=== PATIENT | male | born 1965 | race Caucasian/White ===

== ENCOUNTER 2017-07-16 10:36 | Emergency (ER) | payer OTHER ==
[2017-07-16 11:49] VITALS: BP 133/83
--- NOTE | 2017-07-16 12:04 | UC ---
Respiratory Complaint HPI - HPI Summary HPI Summary: 52 year old male with no significant pmhx here with cough, congestion and runny nose for over 2 weeks. Reports symptoms not alleviated even on OTC meds. CP only when coughing. Reports productive cough and patient is active smoker. - History of Current Complaint Chief Complaint: UCRespiratory Stated Complaint: UPPER RESPIRATORY COMPLAINT Time Seen by Provider: 07/16/17 12:02 Hx Obtained From: Patient Onset/Duration: Gradual Onset Severity Initially: Mild Pain Intensity: 8 Character: Sputum Description: Aggravating Factors: Nothing Alleviating Factors: Nothing Associated Signs And Symptoms: Positive: Nasal Congestion, Sinus Discomfort - Allergies/Home Medications Allergies/Adverse Reactions: Allergies Allergy/AdvReac Type Severity Reaction Status Date / Time No Known Allergies Allergy Verified 04/25/13 11:53 Home Medications: Home Medications Guaifenesin/Dextromethorphan [Robitussin Cough-Chest Dm Liq] 10 ml PO Q12HR [History Confirmed 07/16/17] Phenylephrine HCl [Sinus PE Decongestant] 10 mg PO DAILY 07/16/17 [History Confirmed 07/16/17] guaiFENesin [Mucinex] 1,200 mg PO Q12H 07/16/17 [History Confirmed 07/16/17] PMH/Surg Hx/FS Hx/Imm Hx Previously Healthy: Yes - Surgical History Surgical History: None - Social History Alcohol Use: None Substance Use Type: None Smoking Status (MU): Current Some Day Smoker Type: Cigarettes Amount Used/How Often: 1-2 CIG Length of Time of Smoking/Using Tobacco: 15 Years Have You Smoked in the Last Year: No When Did the Patient Quit Smoking/Using Tobacco: 2011 Household Exposure Type: Cigarettes - Immunization History Most Recent Influenza Vaccination: Not the season Review of Systems Constitutional: Negative Skin: Negative Eyes: Negative ENT: Sore Throat, Nasal Discharge, Sinus Congestion Respiratory: Cough Cardiovascular: Negative Gastrointestinal: Negative Genitourinary: Negative Motor: Negative Neurovascular: Negative Musculoskeletal: Negative Neurological: Negative Psychological: Negative All Other Systems Reviewed And Are Negative: Yes Physical Exam Triage Information Reviewed: Yes Appearance: Well-Appearing, No Pain Distress Vital Signs: Initial Vital Signs Temp 36.5 C 07/16/17 11:40 Pulse 65 07/16/17 11:40 Resp 14 07/16/17 11:40 BP 133/83 07/16/17 11:40 Pulse Ox 96 07/16/17 11:40 ENT: Positive: Pharyngeal erythema. Negative: Tonsillar swelling, Tonsillar exudate, Sinus tenderness, Uvula midline Respiratory Exam: Normal Cardiovascular Exam: Normal Abdominal Exam: Normal Musculoskeletal Exam: Normal Psychological Exam: Normal Skin Exam: Normal UC Diagnostic Evaluation - Laboratory O2 Sat by Pulse Oximetry: 96 Respiratory Course/Dx - Differential Dx/Diagnosis Differential Diagnosis/HQI/PQRI: Bronchitis, Influenza, Laryngitis, Lower Resp Infection, Sinusitis Provider Diagnoses: bronchitis. Since patient is active smoker and not alleviated with two weeks of OTC meds, will benefit azithro. Discharge - Sign-Out/Discharge Documenting (check all that apply): Discharge/Admit/Transfer - Discharge Plan Condition: Good Disposition: HOME Prescriptions: Acetaminop/Codeine 30 MG TAB* [Tylenol/Codeine 30 MG TAB*] 1 tab PO Q8H PRN #12 tab MDD 3 PRN Reason: Cough Azithromyxin HAILE (NF) [Z-Haile (Zithromax) 250 mg tabs #6] 2 tab PO .TODAY, THEN 1 DAILY #6 tab Patient Education Materials: Acute Bronchitis (ED) Forms: *Work Release Referrals: Severino Connor PA [Primary Care Provider] - Additional Instructions: Dont drive or operate heavy machinery after taking tylenol 3. - Billing Disposition and Condition Condition: GOOD Disposition: HOME
== END 2017-07-16 12:40 | disposition home or self-care (01) ==
LOC: UCCORT 10:36
DX: J40 Bronchitis, not specified as acute or chronic (principal); F17.210 Nicotine dependence, cigarettes, uncomplicated
CPT/HCPCS: 99212; G0463

== ENCOUNTER 2018-08-08 11:05 | Emergency (ER) | payer OTHER ==
[2018-08-08 11:20] VITALS: BP 124/79
--- NOTE | 2018-08-08 11:41 | UC ---
General HPI - HPI Summary HPI Summary: nasal congestion, throat irritation and cough with chest congestion x 4 days. no fever or chest pain. occasional sob and wheezing. denies hx copd but has smoked for years. admits to waking up daily with a cough and congestion. states had a cxr with past year for a physical that was ok. - History of Current Complaint Chief Complaint: UCGeneralIllness Stated Complaint: UPPER RESPIRATORY Time Seen by Provider: 08/08/18 11:28 Hx Obtained From: Patient Onset/Duration: Gradual Onset Timing: Constant Pain Intensity: 4 Associated Signs & Symptoms: Negative: Chest Pain, Fever - Allergy/Home Medications Allergies/Adverse Reactions: Allergies Allergy/AdvReac Type Severity Reaction Status Date / Time No Known Allergies Allergy Verified 04/25/13 11:53 Home Medications: Home Medications Dm/Pseudoephed/Acetaminophen [Day-Time Multi-Symptom Co] 1 cap PO Q8HR PRN 08/08 [History Confirmed 08/08/18] PMH/Surg Hx/FS Hx/Imm Hx Previously Healthy: Yes - Surgical History Surgical History: None - Family History Known Family History: Positive: Other - copd - Social History Alcohol Use: None Substance Use Type: None Smoking Status (MU): Current Some Day Smoker Type: Cigarettes Amount Used/How Often: 1-2 CIG Length of Time of Smoking/Using Tobacco: 15 Years Have You Smoked in the Last Year: No When Did the Patient Quit Smoking/Using Tobacco: 2011 Household Exposure Type: Cigarettes - Immunization History Most Recent Influenza Vaccination: Not the season Review of Systems All Other Systems Reviewed And Are Negative: Yes Constitutional: Negative: Fever ENT: Positive: Sore Throat, Sinus Congestion Respiratory: Positive: Shortness Of Breath, Cough Cardiovascular: Negative: Palpitations, Chest Pain Physical Exam Triage Information Reviewed: Yes Appearance: Well-Appearing Vital Signs: Initial Vital Signs Temp 97.7 F 08/08/18 11:16 Pulse 53 08/08/18 11:16 Resp 15 08/08/18 11:16 BP 124/79 08/08/18 11:16 Pulse Ox 98 08/08/18 11:16 Vital Signs Reviewed: Yes Eyes: Positive: Conjunctiva Clear ENT: Positive: Pharynx normal, Nasal congestion, TMs normal. Negative: Nasal drainage, Sinus tenderness Neck: Positive: Supple, Nontender, No Lymphadenopathy Respiratory: Positive: No accessory muscle use, Decreased breath sounds. Negative: Crackles Cardiovascular: Positive: Other: - Regular, no murmur, rate 55. Abdomen Description: Positive: Nontender Musculoskeletal: Positive: ROM Intact Neurological: Positive: Alert Psychological: Positive: Age Appropriate Behavior Skin Exam: Normal Course/Dx - Differential Dx - Multi-Symptom Differential Diagnoses: Other - cxr within past year thus not repeated. no concern for pneumonia. hx raises concern for some copd thus will tx with antibiotic along with albuterol and prednisone. - Diagnoses Provider Diagnosis: URI (upper respiratory infection), Cough Discharge - Sign-Out/Discharge Documenting (check all that apply): Patient Departure All imaging exams completed and their final reports reviewed: No Studies - Discharge Plan Condition: Stable Disposition: HOME Prescriptions: Albuterol HFA INHALER* [Ventolin HFA Inhaler*] 2 puff INH Q6H #1 mdi Azithromycin TAB* [Zithromax TAB (Z-HAILE) 250 mg #6 tabs] 2 tab PO .TODAY, THEN 1 DAILY #1 haile predniSONE [Prednisone 20 MG TAB] 40 mg PO DAILY 5 Days #10 tablet Patient Education Materials: Upper Respiratory Infection (DC), Acute Cough (ED) Referrals: Severino Connor PA [Primary Care Provider] - 7 Days - Billing Disposition and Condition Condition: STABLE Disposition: Home
== END 2018-08-08 11:47 | disposition home or self-care (01) ==
LOC: UCCORT 11:05
DX: J06.9 Acute upper respiratory infection, unspecified (principal); R05 Cough; F17.210 Nicotine dependence, cigarettes, uncomplicated
CPT/HCPCS: 99212; G0463